=== PATIENT | male | born 1955 ===

== ENCOUNTER 2025-08-22 12:14 | Outpatient (AMB) | payer MEDICARE, OTHER, SELFPAY ==
[2025-08-22 12:18] VITALS: BP 140/70; PULSE 79; TEMP 36.4; O2SAT 99; BMI 36.0
--- NOTE | 2025-08-22 12:18 | AM.OFFWIN_ITS ---
Intake Vital Signs 08/22/25 12:18 Height 5 ft 7 in Weight 230 lb BMI 36.0 BP 140/70 H Blood Pressure Location Lt brachial Position Sitting Pulse 79 Pulse Source Pulse Oximeter Temp 97.6 F Temp Source Oral Pulse Oximetry (%) 99 Oxygen Delivery Method Room Air Intake Visit Reasons: EP two tick bites, arm and scrotum Intake Note: Patient presents with c/o two tick bites, one on upper right arm & one on his scrotum. Allergies No Known Allergies Allergy (Verified 08/22/25 12:22) Do you need a note to return to daycare/school/sports/work: No HPI HPI Comments History of Present Illness Details History of Present Illness - The patient is a 70-year-old male pres enting with 2 tick bites, one in the right arm, one in the left testicle. - Tick bites were noted on the arm, with the possibility of being attached for 2 to 26 hours. - The patient attempted removal, but res idual parts remain. - states tick was not engorged but was large unlike a deer tick. - The patient has a history of diabetes mellitus, with a recent A1c of 6, improved from 9.2. Review of Systems - Integumentary: Reports tick bites on t he arm, denies erythema or swelling at the site. - General: Denies fever or malaise. All systems reviewed and are unremarkable except as noted in HPI Physical Exam General: Cooperative, healthy appearing, comfortable, no acute distress and well developed Orientation: Patient oriented x3 Limitations: No limitations Head: Normal to inspection Ears: Hearing grossly normal bilaterally Nose: Normal External nose present Face and sinus: Normal facial exam Eyes: Appearance normal, both eyes and all related structures Neck: Normal visual inspection and Yes full ROM Respiratory: Normal respiratory effort and able to speak in complete sentences. Skin: right arm has trace residual bug/wood tick remnants with scab, left testicle has scab with no trace remnants, no warmth or drainage noted on either one, no erythema migrans or other rash noted. Neuro: Patient oriented x3 Extremities: Normal to inspection Physical Exam Vital Signs: Last Vital Signs Temp 97.6 F 08/22/25 12:18 Pulse 79 08/22/25 12:18 BP 140/70 H 08/22/25 12:18 Pulse Ox 99 08/22/25 12:18 Oxygen Delivery Method Room Air 08/22/25 12:18 BMI result Body Mass Index 36.0 Assessment & Plan Assessment & Plan (1) Tick bite: Code(s): W57.XXXA - Bitten or stung by nonvenomous insect and other nonvenomous arthropods, initial encounter Qualifiers: Encounter type: initial encounter Site of tick bite: upper arm Laterality: right Qualified Code(s): S40.861A - Insect bite (nonvenomous) of right upper arm, initial encounter; W57.XXXA - Bitten or stung by nonvenomous insect and other nonvenomous arthropods, initial encounter Plan: Patient was informed and verbally consented to the use of an ambient scribe for clinic note documentation during this visit. Two Tick Bites, one on right arm, one on left testicle - Based on description of tick, it was not engorged and likely a wood tick, not a deer tick so no/low chance of Lyme or other disease. No antibiotics indicated today. - Monitor for symptoms of Lyme disease, including erythema migrans, fever, joint pain, or rash. - Consider prophylactic doxycycline if symptoms develop, but currently not indicated due to low risk from wood tick. - Maintain blood glucose levels within normal range to promote healing of bites. Coding Level of Care Code New Pt Level 3 (72853) Diagnoses Tick bite of right upper arm, initial encounter S40.861A; W57.XXXA Encounter type: initial encounter Site of tick bite: upper arm Laterality: right
--- OUTSIDE RECORDS SUMMARY | 2025-08-22 14:04 | XMS_ITS | Clinical Summary ---
Author Organization [facility] [address] [place] [address] [place] [phone] Phone Care Team Providers Care Hydrographic Engineer Name Role Phone Edson Arzate MD Primary Care Provider Allergies No known active allergies Medications cholecalciferol (VITAMIN D-3) 50 mcg (2,000 unit) tablet Take 1 tablet (2,000 Units total) by mouth 3 (three) times a week. 12/31/2022 Active FreeStyle Lite Meter monitoring kit USE TO TEST BLOOD SUGAR ONCE DAILY 1 each 02/08/2025 Active blood sugar diagnostic (FreeStyle Lite Strips) test strip USE TO TEST BLOOD SUGAR ONCE DAILY 100 each 1 02/08/2025 02/09/20 26 Active FreeStyle Lancets 28 gauge lancets USE TO TEST BLOOD SUGAR ONCE DAILY 100 each 1 02/08/2025 Active glipiZIDE (Glucotrol XL) 5 mg 24 hr tablet Take 1 tablet (5 mg total) by mouth 1 (one) time each day. Do not crush, chew, or split. 90 each 1 03/09/2025 Active metFORMIN XR (GLUCOPHAGE-XR) 500 mg 24 hr tablet Take 1 tablet (500 mg total) by mouth 2 (two) times a day. 180 tablet 1 04/07/2025 Active hydroCHLOROthia zide 12.5 mg tablet TAKE 1 TABLET (12.5MG) BY MOUTH ONCE A DAY 90 tablet 1 04/11/2025 Active losartan (COZAAR) 50 mg tablet TAKE 1 TABLET (50MG) BY MOUTH ONCE A DAY 90 tablet 1 04/11/2025 Active multivitamin (MULTIPLE VITAMINS ORAL) Take 1 tablet by mouth 1 (one) time each day. Mens over 50 vitamins Active Active Problems Problem Noted Date Diagnosed Date Vitamin D deficiency 12/31/2022 Diverticulosis 12/31/2022 Microalbuminuria 05/15/2022 Hypertension 05/15/2022 Assessment & Plan (02/06/2025 8:02 PM EDT): Hyperlipidemia 05/15/2022 Assessment & Plan (02/06/2025 8:02 PM EDT): Type 2 diabetes mellitus wit hout complication, without long-term current use of insulin ([facility] V24, [facility] V28) 12/27/2021 Assessment & Plan (02/06/2025 8:02 PM EDT): Orders: Hemoglobin A1c; Future NAFL (nonalcoholic fatty liver) 12/26/2021 History of COVID-19 12/31/2020 Varicose vein of leg 11/05/2017 Assessment & Plan (02/06/2025 8:02 PM EDT): Orders: Ambulatory referral to Vascular Surgery; Future Severe obesity (BMI 35.0-39. 9) with comorbidity ([facility] V24, [facility] V28) 04/04/2015 Urticaria 01/13/2013 Encounters Date Type Department Care Team Description 06/22/2025 9:00 AM EDT Office Visit Adult Medicine [address] [phone] Edson Arzate MD Primary hypertension (Primary Dx); Mixed hyperlipidemia; Type 2 diabetes mellitus without complication, without long-term current use of insulin ([facility] V24, [facility] V28); Varicose veins of bilateral lower extremities with other complications; NAFL (nonalcoholic fatty liver); Atypical mole from Last 3 Months Immunizations Immunization Administration Dates Next Due Influenza, Unspecified 12/31/2020 Td Tetanus diptheria (Tdvax) 7yo and older 01/26 Tdap Tetanus diptheria acell ular pertussis (Boostrix; Adacel) 7yo and older 01/13/2013 Surgical History Surgery Date Site/Laterality Comments VASECTOMY PROCEDURE: CO VASECTOMY UNI/BI SPX W/POSTOP SEMEN EXAMS; COMMENT: sep 1998 TONSILLECTOMY PROCEDURE: HISTORICAL TONSILLECTOMY WISDOM TOOTH EXTRACTION PROCEDURE: HISTORICAL WISDOM TEETH EXTRACTION COLONOSCOPY W/ BIOPSIES 10/12/2012 PROCEDURE: CO COLONOSCOPY W/BIOPSY SINGLE/MULTIPLE; COMMENT: 5 mm cecal polyp: Serrated adenoma. HERNIA REPAIR 2013 PROCEDURE: HISTORICAL HERNIA REPAIR/UMB Family History Medical History Relation Name Comments Diabetes Father Lymphoma Father undergoing tx a s of 01/2013 Diabetes Mother Heart attack Mother Relation Name Status Comments Brother 1 Alive htn obesity Brother 2 Alive obesity Father Alive non alcohol cir rhosis dm Mother (Age 69) mi dm chol est htn Sister 1 Alive obesisty Sister 2 Alive obesity Social History Tobacco Use Types Packs/Day Years Used Date Smoking Tobacco: Never Smokeless Tobacco: Never Alcohol Use Standard Drinks/Week Comments Yes 1.7 (1 standard drink = 0.6 oz p ure alcohol) Housing Instability Answer Date Recorde d Are you worried that in the next 2 months you may not have stable housing? No 10/19/2024 Food Access & Nutrition Answer Date Rec orded Do you have access to a vari ety of food including fruits and vegetables? Yes 10/19/2024 Access to Healthcare Answer Date Record ed Within the last 3 months, ho w many times did you visit the emergency department for your medical care? 0 10/19/2024 Health Literacy Answer Date Recorded How often do you need to hav e someone help you when you read instructions, pamphlets, or other written material from your doctor or pharmacy? Never 10/19/2024 Caregiver: How often do you need to have someone help you when you read instructions, pamphlets, or other written material from your doctor or pharmacy? Not on file 10/19/2024 Financial Risk Answer Date Recorded How hard is it for you to pa y for the very basics like food, housing, medical care, and air conditioning / heating? Not very hard 10/19/2024 Transportation Answer Date Recorded Has the lack of transportati on kept you from meetings, work, or from getting things needed for daily living? No Has the lack of transportati on kept you from medical appointments or from getting medications? No 10/19/2024 Social Isolation Answer Date Recorded How often do you feel lonely or isolated from th ose around you? Never 10/19/2024 Food Risk Answer Date Recorded Within the past 12 months we worried whether our food would run out before we got money to buy more. Never true 10/19/2024 Within the past 12 months th e food we bought just didn't last and we didn't have money to get more. Never true 10/19/2024 Dependent Care Answer Date Recorded Do you need help finding or paying for care for your loved ones. For example, child welfare social worker or elderly care for an older adult? No 10/19/2024 Education Answer Date Recorded Do you think completing more education or training, like finishing a GED, going to college, or learning a trade, would be helpful for you? No 10/19/2024 Employment and Income Answer Date Recor ded During the last four weeks, have you been actively looking for work? No 10/19/2024 Living Situation Answer Date Recorded What is your living situation? Unrecognized valu e 10/19/2024 Sex and Gender Information Value Date Recorded Sex Assigned at Male 12/29/2024 12:08 PM EDT Legal Sex Male 3:11 AM EST Gender Identity Male 12/29/2024 12:08 PM EDT Sexual Orientation Straight 12/29/2024 12 :08 PM EDT Obstetrics History Last Filed Vital Signs Vital Sign Reading Time Taken Comments Blood Pressure 134/68 06/22/2025 9:20 AM EDT Pulse 71 06/22/2025 9:03 AM EDT Temperature 35.9 C (96.6 F) 06/22/2025 9:03 AM EDT Respiratory Rate 16 02/06/2025 3:00 PM EDT Oxygen Saturation - - Inhaled Oxygen Concentration - - Weight 103 kg (228 lb) 06/22/2025 9:03 AM EDT Height 170.2 cm (5' 7 ) 06/22/2025 9:03 AM EDT Body Mass Index 35.71 06/22/2025 9:03 AM EDT Plan of Treatment Upcoming Encounters Date Type Department Care Team (Late st Contact Info) Description 01/15/2026 8:15 AM EDT Office Visit Adult Medicine [address], [place] [phone] Edson Arzate MD [address] [place], [place] Health Maintenance Due Date Last Done Comments COVID-19 Vaccine (#1) 1962 Diabetes: Annual Retina Eye Exam 1967 Pneumococcal Vaccine: 50+ Years (1 of 2 - PCV) 01/19/1976 Zoster Vaccines (1 of 2) 01/19/1976 RSV Immunization Adult Patients (1 - Risk 50-74 years 1-dose series) 2007 Hepatitis C Screening 09/21/2022 Diabetes: Annual Foot Exam 07/27/2024 07/27/2023 Influenza Vaccine (#1) 2025 12/31/2020 Social Influencers of Health Screening 10/19/2025 10/19/2024 Diabetes: Blood Sugar Contro l Test (HGBA1C) 12/17/2025 06/19/2025, 02/06/2025 Diabetes: Annual Urine Albumin-Creatinine Ratio (uACR) 02/06/2026 02/06/2025 Diabetes: Annual GFR (Glomerular Filtration Rate) 02/06/2026 02/06/2025 Hypertension/CHF/CAD Annual BMP Blood Test 02/06/2026 02/06/2025 Falls Risk Assessment 06/22/2026 06/22/2025 , 02/06/2025 Colorectal Cancer Screening: Colonoscopy 12/30/2027 12/29/2022 Cholesterol Screening (Lipid Panel) 02/06/2030 02/06/2025 DTaP,Tdap,and Td Vaccines (3 - Td or Tdap) 01/26/2034 01/27/2024, 01/13/2013 Medicare Annual Wellness Visit Discontinued 02/06/2025 Depression Screening Completed 06/15/2025 HIB Vaccines Aged Out No longer eligi ble based on patient's age to complete this topic HPV Vaccines Aged Out No longer eligi ble based on patient's age to complete this topic Hepatitis A Vaccines Aged Out No long er eligible based on patient's age to complete this topic Hepatitis B Vaccines Aged Out No long er eligible based on patient's age to complete this topic IPV Vaccines Aged Out No longer eligi ble based on patient's age to complete this topic MMR Vaccines Aged Out No longer eligi ble based on patient's age to complete this topic Meningococcal ACWY Vaccine Aged Out N o longer eligible based on patient's age to complete this topic Meningococcal B Vaccine Aged Out No l onger eligible based on patient's age to complete this topic RSV Immunization Patients Under 20 months Aged Out No longer eligible based on patient's age to complete this topic Varicella Vaccines Aged Out No longer eligible based on patient's age to complete this topic Procedures Procedure Name Priority Date/Time Associated Diagnosis Comments POC GLUCOSE Routine 06/22/2025 9:09 AM EDT Type 2 diabetes mellitus without complication, without long-term current use of insulin ([facility] V24, [facility] V28) CBC WITH AUTO DIFFERENTIAL Routine 06/19/2025 7:55 AM EDT Chronic anemia HEMOGLOBIN A1C Routine 06/19/2025 7:55 AM EDT Type 2 diabetes mellitus without complication, without long-term current use of insulin ([facility] V24, [facility] V28) CBC AND DIFFERENTIAL Routine 06/19/2025 7:55 AM EDT Chronic anemia HEPATIC FUNCTION PANEL Routine 7:55 AM EDT Transaminitis MICROALBUMIN CREATININE URINE RATIO Routine 02/06/2025 8:00 AM EDT Primary hypertension Mixed hyperlipidemia Type 2 diabetes mellitus without complication, without long-term current use of insulin ([facility] V24, [facility] V28) COMPREHENSIVE METABOLIC PANEL Routine 02/06/2025 8:00 AM EDT Primary hypertension Mixed hyperlipidemia Type 2 diabetes mellitus without complication, without long-term current use of insulin ([facility] V24, [facility] V28) LIPID PANEL WITH REFLEX TO DIRECT LDL Routine 02/06/2025 8:00 AM EDT Primary hypertension Mixed hyperlipidemia Type 2 diabetes mellitus without complication, without long-term current use of insulin ([facility] V24, [facility] V28) from Last 3 Months or Most Recently Relevant to Health Maintenance Results * POC glucose manually resulted (06/22/2025 9:09 AM EDT) [facility] Glucose POC 224 mg/dL Blood Capillary blood specimen / Unknown 06/22/2025 9:09 AM EDT Edson Arzate MD POINT OF CARE TEST ENTER/ED IT ORDERABLES Final Result * (ABNORMAL) CBC auto differential (06/19/2025 7:55 AM EDT) [facility] WBC 8.3 4.8 - 10.8 K/mcL LAB HEMETOLOGY METHOD 06/19/2025 10:19 AM [facility] RBC 4.30(L) 4.50 - 5.50 M/mcL LAB HEMETOLOGY METHOD 06/19/2025 10:19 AM [facility] Hemoglobin 13.6 13.5 - 17.5 g/dL LAB HEMETOLOGY METHOD 06/19/2025 10:19 AM [facility] Hematocrit 41.3(L) 42.0 - 54.0 % LAB HEMETOLOGY METHOD 06/19/2025 10:19 AM [facility] MCV 96.0 79.0 - 98.0 FL LAB HEMETOLOGY METHOD 06/19/2025 10:19 AM [facility] MCH 31.6 27.0 - 32.0 pcg LAB HEMETOLOGY METHOD 06/19/2025 10:19 AM [facility] MCHC 32.9 32.0 - 37.0 g/dL LAB HEMETOLOGY METHOD 06/19/2025 10:19 AM [facility] RDW 13.5 11.0 - 15.0 % LAB HEMETOLOGY METHOD 06/19/2025 10:19 AM [facility] Platelets 223 130 - 400 K/mcL LAB HEMETOLOGY METHOD 06/19/2025 10:19 AM [facility] MPV 10.9 7.0 - 11.0 FL LAB HEMETOLOGY METHOD 06/19/2025 10:19 AM [facility] NRBC 0.0 <1.0 % LAB HEMETOLOGY METHOD 06/19/2025 10:19 AM [facility] NRBC Absolute 0.00 <0.10 K/mcL LAB HEMETOLOGY METHOD 06/19/2025 10:19 AM [facility] Neutrophils Relative 44.3 % LAB HEMETOLOGY METHOD 06/19/2025 10:19 AM [facility] Lymphocytes Relative 41.6 % LAB HEMETOLOGY METHOD 06/19/2025 10:19 AM [facility] Monocytes Relative 9.2 % LAB HEMETOLOGY METHOD 06/19/2025 10:19 AM [facility] Eosinophils Relative 4.0 % LAB HEMETOLOGY METHOD 06/19/2025 10:19 AM [facility] Basophils Relative 0.5 % LAB HEMETOLOGY METHOD 06/19/2025 10:19 AM [facility] Immature Granulocytes Relative 0.4 % LAB HEMETOLOGY METHOD 06/19/2025 10:19 AM [facility] Neutrophils Absolute 3.67 1.50 - 7.00 K/mcL LAB HEMETOLOGY METHOD 06/19/2025 10:19 AM [facility] Lymphocytes Absolute 3.44 1.00 - 5.00 K/mcL LAB HEMETOLOGY METHOD 06/19/2025 10:19 AM [facility] Monocytes Absolute 0.76 0.20 - 1.00 K/mcL LAB HEMETOLOGY METHOD 06/19/2025 10:19 AM [facility] Eosinophils Absolute 0.33 0.00 - 0.50 K/mcL LAB HEMETOLOGY METHOD 06/19/2025 10:19 AM EDT [facility] Basophils Absolute 0.04 0.00 - 0.20 K/[facility] LAB HEMETOLOGY METHOD 06/19/2025 10:19 AM EDT [facility] Immature Granulocytes Absolute 0.03 0.00 - 0.03 K/[facility] LAB HEMETOLOGY METHOD 06/19/2025 10:19 AM EDT [facility] Blood Venous blood specimen / Unknown Venipuncture / Unknown 06/19/2025 7:55 AM EDT 06/19/2025 7:55 AM EDT Edson Arzate MD LAB BLOOD ORDERABLES Final Result Performing Organization Address City/[facility]/ZIP Co de Phone Number [facility] [address] [place] [address], [place] [phone] * (ABNORMAL) Hemoglobin A1c (06/19/2025 7:55 AM EDT) Hemoglobin A1C 6.8(H) <6.5 % LAB CHEMISTRY METHOD 06/19/2025 1:28 PM EDT [facility] Mean Bld Glu Estim. 148 mg/dL LAB CHEMISTRY METHOD 06/19/2025 1:28 PM EDT [facility] Blood Venous blood specimen / Unknown Venipuncture / Unknown 06/19/2025 7:55 AM EDT 06/19/2025 7:55 AM EDT Edson Arzate MD LAB BLOOD ORDERABLES Final Result [facility] [address] [place] [address], [place] [phone] * Hepatic function panel (06/19/2025 7:55 AM EDT) Pathologist [facility] Total Protein 7.5 6.0 - 8.0 g/dL LAB CHEMISTRY METHOD 06/19/2025 10:57 AM [facility] Albumin 4.0 3.2 - 5.0 g/dL LAB CHEMISTRY METHOD 06/19/2025 10:57 AM [facility] Total Bilirubin 0.8 0.0 - 1.4 mg/dL LAB CHEMISTRY METHOD 06/19/2025 10:57 AM [facility] Bilirubin, Direct 0.2 0.0 - 0.3 mg/dL LAB CHEMISTRY METHOD 06/19/2025 10:57 AM [facility] Bilirubin, Indirect 0.6 0.0 - 1.1 mg/dL LAB CHEMISTRY METHOD 06/19/2025 10:57 AM [facility] ALT (SGPT) 32 10 - 60 unit/L LAB CHEMISTRY METHOD 06/19/2025 10:57 AM [facility] AST (SGOT) 32 10 - 42 unit/L LAB CHEMISTRY METHOD 06/19/2025 10:57 AM [facility] Alkaline Phosphatase 82 42 - 121 unit/L LAB CHEMISTRY METHOD 06/19/2025 10:57 AM [facility] Blood Venous blood specimen / Unknown Venipuncture / Unknown 06/19/2025 7:55 AM EDT 06/19/2025 7:55 AM EDT us Edson Arzate MD LAB BLOOD ORDERABLES Final Result [facility] [address] [place] [address], * (ABNORMAL) Lipid panel with reflex to direct LDL (02/06/2025 8:00 AM EDT) [facility] Cholesterol 175 0 - 200 mg/dL LAB CHEMISTRY METHOD 02/06/2025 3:26 PM EDT [facility] Triglycerides 82 0 - 150 mg/dL LAB CHEMISTRY METHOD 02/06/2025 3:26 PM EDT [facility] HDL 40 >=40 mg/dL LAB CHEMISTRY METHOD 02/06/2025 3:26 PM EDT [facility] LDL Calculated 119(H) 0 - 100 mg/dL LAB CHEMISTRY METHOD 02/06/2025 3:26 PM EDT [facility] VLDL Cholesterol Julian 16.4 mg/dL LAB CHEMISTRY METHOD 02/06/2025 3:26 PM EDT [facility] Non HDL Chol. (LDL+VLDL) 135 <145 mg/dL LAB CHEMISTRY METHOD 02/06/2025 3:26 PM EDT [facility] Chol/HDL Ratio 4.4 0.0 - 4.4 LAB CHEMISTRY METHOD 02/06/2025 3:26 PM EDT [facility] Blood Venous blood specimen / Unknown Venipuncture / Unknown 02/06/2025 8:00 AM EDT 02/06/2025 8:00 AM EDT Mary SHARP LAB BLOOD ORDERABLES Fin al Result [facility] [address] [place] [address], * Microalbumin creatinine urine ratio (02/06/2025 8:00 AM EDT) Creatinine, Urine 132.0 mg/dL LAB CHEMISTRY METHOD 02/06/2025 9:49 PM EDT [facility] Microalb, Ur 14.1 0.0 - 29.0 mg/L LAB CHEMISTRY METHOD 02/06/2025 9:49 PM EDT [facility] Microalb/Creat Ratio 11 <30 mg/g creat LAB CHEMISTRY METHOD 02/06/2025 9:49 PM EDT [facility] Urine Urine specimen obtained by clean catch procedure / Unknown Non-blood Collection / Unknown 02/06/2025 8:00 AM EDT 02/06/2025 8:00 AM EDT Mary SHARP LAB URINE ORDERABLES Fin al Result [facility] [address] [place] [address], * (ABNORMAL) Comprehensive metabolic panel (02/06/2025 8:00 AM EDT) Sodium 137 133 - 145 mmol/L LAB CHEMISTRY METHOD 02/06/2025 3:26 PM [facility] Potassium 4.2 3.5 - 5.5 mmol/L LAB CHEMISTRY METHOD 02/06/2025 3:26 PM [facility] Chloride 104 96 - 110 mmol/L LAB CHEMISTRY METHOD 02/06/2025 3:26 PM [facility] CO2 26 21 - 32 mmol/L LAB CHEMISTRY METHOD 02/06/2025 3:26 PM [facility] Anion Gap 7 3 - 11 LAB CHEMISTRY METHOD 02/06/2025 3:26 PM [facility] Glucose 181(H) 70 - 100 mg/dL LAB CHEMISTRY METHOD 02/06/2025 3:26 PM [facility] BUN 18 5 - 25 mg/dL LAB CHEMISTRY METHOD 02/06/2025 3:26 PM [facility] Creatinine 0.93 0.70 - 1.30 mg/dL LAB CHEMISTRY METHOD 02/06/2025 3:26 PM [facility] eGFR 89 >=60 mL/min/1. 73m2 LAB CHEMISTRY METHOD 02/06/2025 3:26 PM [facility] Comment:Calculation based on the Chronic Kidney Disease Epidemiology Collaboration (CKD-EPI) equation refit without adjustment for race. BUN/Creatinine Ratio 19.4 LAB CHEMISTRY METHOD 02/06/2025 3:26 PM EDT [facility] Calcium 8.8 8.5 - 10.5 mg/dL LAB CHEMISTRY METHOD 02/06/2025 3:26 PM [facility] AST (SGOT) 71(H) 10 - 42 unit/L LAB CHEMISTRY METHOD 02/06/2025 3:26 PM [facility] ALT (SGPT) 80(H) 10 - 60 unit/L LAB CHEMISTRY METHOD 02/06/2025 3:26 PM [facility] Alkaline Phosphatase 85 42 - 121 unit/L LAB CHEMISTRY METHOD 02/06/2025 3:26 PM [facility] Total Protein 7.7 6.0 - 8.0 g/dL LAB CHEMISTRY [facility] Albumin 3.9 3.2 - 5.0 g/dL LAB CHEMISTRY METHOD 02/06/2025 3:26 PM [facility] Total Bilirubin 0.8 0.0 - 1.4 mg/dL LAB CHEMISTRY METHOD 02/06/2025 3:26 PM [facility] Blood Venous blood specimen / Unknown Venipuncture / Unknown 02/06/2025 8:00 AM EDT 02/06/2025 8:00 AM EDT us Mary SHARP LAB BLOOD ORDERABLES Fin al Result [facility] [address] [place] [address], from Last 3 Months or Most Recently Relevant to Health Maintenance Insurance [facility] Care Teams Hydrographic Engineer Relationship Specialty Start Date End Date Edson Arzate MD [address] [place] [address] PCP - General Internal Medicine 04/23/22
== END 2025-08-22 13:10 | disposition home or self-care (01) ==
PROVIDERS: Visit Provider Physician Assistant
DX: S40.861A Insect bite (nonvenomous) of right upper arm, initial encounter (principal); W57.XXXA Bitten or stung by nonvenomous insect and other nonvenomous arthropods, initial encounter

== ENCOUNTER → 2025-08-22 12:14 | Outpatient (BNVA) | payer MEDICARE, OTHER, SELFPAY | PROVIDERS: Visit Provider Physician Assistant | DX: S40.861A Insect bite (nonvenomous) of right upper arm, initial encounter (principal); W57.XXXA Bitten or stung by nonvenomous insect and other nonvenomous arthropods, initial encounter | CPT/HCPCS: 99202 ==